=== PATIENT | male | born 1955 | race Hispanic/Latino ===

== ENCOUNTER → 2017-10-29 | Outpatient (CLI) | payer OTHER ==
[~2017-10-29] MED LIST: ALBUMIN (HUMAN) 25% 200 ML IV ONE; FURO40TA5 PO; LEVE10006 PO; LISI-613 PO; SOTA160T PO; TAMS0.4C32 PO; THIA250T6 PO
[2017-10-29 17:10] LABS: APPEARANCE BODY FLUID CLEAR (CLEAR); COLOR,BODY FLUID LT YELLOW (LT YELLOW); SPECIMENTYPE,BODY FLUID ASCITES; TOTAL VOLUME,BODY FLUID 1370 mL
[2017-10-29 17:32] LABS: BODY FLUID RBC 500 /cu. mm.; BODY FLUID WBC 29 /cu. mm.
[2017-10-29 18:25] LABS: BF LYMPHOCYTE 18 %; BF MESOTHELIAL 9 %; BF MONOCYTE 47 %
== END | disposition home or self-care (01) ==
LOC: RAH 14:52
PROVIDERS: ATTEND Internal Medicine
DX: R18.8 Other ascites (principal); I10 Essential (primary) hypertension; I48.91 Unspecified atrial fibrillation; K21.9 Gastro-esophageal reflux disease without esophagitis; E78.5 Hyperlipidemia, unspecified; Z95.2 Presence of prosthetic heart valve; Z79.01 Long term (current) use of anticoagulants; Z98.890 Other specified postprocedural states; Z79.899 Other long term (current) drug therapy
CPT/HCPCS: 49083; 87071; 87205; 89051; P9046